=== PATIENT | female | born 1945 | race Hispanic/Latino ===

== ENCOUNTER 2018-09-24 19:19 | Emergency (ER) | payer OTHER, MEDICARE ==
[2018-09-24 20:57] LABS: Hematocrit 33.7 % (30.3-42.9); Hemoglobin 11.9 gm/dl (10.1-14.3); Mean Corpuscular HGB Conc 35 % (30-34); Mean Corpuscular Volume 93 fl (79-97); Platelet Count 278 K/mm3 (140-440); Red Blood Count 3.61 M/mm3 (3.65-5.03); Red Cell Distribution Width 12.9 % (13.2-15.2)
[2018-09-24 21:08] LABS: INR 1.05 (0.87-1.13)
[2018-09-24 21:18] LABS: BUN/Creatinine Ratio 8; Blood Urea Nitrogen 7 mg/dL (7-17); Calcium 9.3 mg/dL (8.4-10.2); Hemolysis Index 2
--- NOTE | 2018-09-24 21:28 | Emergency Department Report ---
ED General Adult HPI - General Chief complaint: Dyspnea/Respdistress Stated complaint: POSS APNEA Time Seen by Provider: 09/24/18 20:21 Source: patient, family, EMS, RN notes reviewed Mode of arrival: Stretcher Limitations: No Limitations - History of Present Illness Initial comments: This is a 73-year-old female who typically follows with the [facility]. She endorses a past medical history of hypothyroidism and osteoporosis. The patient was brought to the hospital by emergency medical services from a local [facility] facility. Patient sent to the emergency room, with complaints of apnea and convulsions. Upon EMS arrival to an outpatient urgent care facility, patient is found to be alert and oriented, in no acute distress, with a GCS of 15. Patient reports that she's been having periods of apnea and convulsions. EMS reports that over the past year to year and a half, she has episodes of shortness of breath, which are exertional, loss of consciousness, and possible convulsions. The patient reports that she had an extensive workup at [facility], including EEG, presumed echocardiogram, pulmonary function tests. She reports that she is passing out on a daily basis. She reports no chest pain, and no DVT, pulmonary embolus risk factors. Her reports that to his recollection, she does not have episodes of apnea during sleeping, and that he will occasionally have to perform a thump on her chest, to "revive her." The patient has not had an outpatient sleep study. Apparently, the patient gets episodes of shortness of breath, and "cannot catch her breath and she gets weak." She may have had an episode of loss of consciousness today. The patient has not had a formal outpatient sleep study. She believes her symptoms started after she started an inappropriate thyroid medication, which she thinks was a formulation of T3, T4. The patient reports that she's been off of his medication for over a year. -: Gradual, month(s) Severity scale (0 -10): 0 Consistency: intermittent Improves with: movement Associated Symptoms: loss of appetite, malaise, shortness of breath, syncope, we akness - Related Data Allergies Allergy/AdvReac Type Severity Reaction Status Date / Time No Known Allergies Allergy Unverified 09/24/18 22:56 ED Review of Systems ROS: Stated complaint: POSS APNEA Other details as noted in HPI Constitutional: malaise, other Eyes: denies: vision change ENT: denies: epistaxis Respiratory: shortness of breath Cardiovascular: syncope. denies: chest pain Gastrointestinal: denies: vomiting Genitourinary: denies: dysuria Musculoskeletal: denies: back pain Skin: denies: lesions Neurological: weakness. denies: headache, numbness, paresthesias, confusion, abnormal gait, vertigo Psychiatric: anxiety ED Past Medical Hx - Past Medical History Previous Medical History?: Yes Additional medical history: Osteoporosis, melanom, hypothyroidism - Surgical History Past Surgical History?: Yes Additional Surgical History: skin, right leg, left arm, section 1969 - Social History Smoking Status: Never Smoker Substance Use Type: None ED Physical Exam - General Limitations: No Limitations General appearance: alert, in no apparent distress - Head Head exam: Present: atraumatic, normocephalic - Eye Eye exam: Present: normal appearance, PERRL, EOMI, other (visual acuity intact to finger counting, color perception, reading at a close distance). Absent: nystagmus - ENT ENT exam: Present: normal exam, normal orophraynx, mucous membranes moist, normal external ear exam - Neck Neck exam: Present: normal inspection, full ROM. Absent: tenderness, meningismus - Respiratory Respiratory exam: Present: normal lung sounds bilaterally. Absent: respiratory distress - Cardiovascular Cardiovascular Exam: Present: normal rhythm, bradycardia, normal heart sounds. Absent: systolic murmur, diastolic murmur, rubs, gallop - GI/Abdominal GI/Abdominal exam: Present: soft. Absent: distended, tenderness, guarding, rebound, rigid, pulsatile mass - Extremities Exam Extremities exam: Present: normal inspection, full ROM, other (2+ pulses noted in the bilateral upper, lower extremities. Compartments soft. No long bony tenderness. The pelvis is stable.). Absent: pedal edema, joint swelling, calf tenderness - Back Exam Back exam: Present: normal inspection, full ROM. Absent: tenderness, CVA tenderness (R), paraspinal tenderness, vertebral tenderness - Neurological Exam Neurological exam: Present: alert, oriented X3, CN II-XII intact, other (Extraocular movements intact. Tongue midline. No facial droop. Facial sensation intact to light touch in the V1, V2, V3 distribution bilaterally. 5 and 5 strength in 4 extremities.. Sensation is intact to light touch in 4 extremities.). Absent: motor sensory deficit - Psychiatric Psychiatric exam: Present: anxious - Skin Skin exam: Present: warm, dry, intact, normal color. Absent: rash ED Course Vital Signs 09/24/18 09/24/18 09/24/18 20:20 20:24 20:38 Temperature 98.6 F 98.6 F Pulse Rate 59 L 59 L Respiratory 18 18 18 Rate Blood Pressure 120/44 Blood Pressure 120/44 [Left] O2 Sat by Pulse 99 99 98 Oximetry 09/24/18 09/24/18 09/24/18 20:48 21:00 21:16 Temperature Pulse Rate 53 L 55 L 53 L Respiratory 16 21 16 Rate Blood Pressure 108/48 117/47 Blood Pressure [Left] O2 Sat by Pulse 99 100 99 Oximetry 09/24/18 09/24/18 09/24/18 21:30 21:46 22:00 Temperature Pulse Rate 53 L 57 L 66 Respiratory 20 20 26 H Rate Blood Pressure 105/43 105/43 105/43 Blood Pressure [Left] O2 Sat by Pulse 99 99 93 Oximetry 09/24/18 09/24/18 09/24/18 22:16 22:30 22:46 Temperature Pulse Rate 56 L 55 L 55 L Respiratory 18 17 15 Rate Blood Pressure 101/47 113/47 113/47 Blood Pressure [Left] O2 Sat by Pulse 100 99 97 Oximetry - Reevaluation(s) Reevaluation #1: 09/24/18 21:28 Differential diagnosis, including but not limited to: Sleep apnea, idiopathic lung disease, structural cardiac disease, arrhythmia, electrolyte derangement, acute coronary syndrome, seizure, pseudoseizure, conversion disorder Assessment and plan: 73-year-old female with reported year-long history of shortness of breath, which is exertional, episodes of apnea, questionable seizure-like activity, who has reportedly had extensive inpatient workup at [facility]. The patient is clinically sober at this time, with a Skillman Coma Scale of 15, within an night score of 0. She is not tachycardic, she is not hypoxic, she endorses no pulmonary embolus or DVT risk factors, and she is low risk by well's criteria. The patient will require consultation with a neurologist, possibly sleep specialist, and possibly warehouse person. Her screening laboratory studies are unremarkable, her physical examination is unremarkable, and she is hemodynamically and neurologically stable currently. Contacted the [facility] and discussed with the coordinating physician, Dr. Calle to arrange for transfer to one of their facilities as we do not have the aforementioned subspecialty services available from patient or emergency room consultation. Reevaluation #2: 09/24/18 21:46 Patient is accepted to [facility] [place], Dr. Melo is the accepting physician. ED Medical Decision Making - Lab Data Result diagrams: 09/24/18 20:46 09/24/18 20:46 Vital Signs 09/24/18 09/24/18 20:20 20:24 Temperature 98.6 F 98.6 F Pulse Rate 59 L 59 L Respiratory 18 18 Rate Blood Pressure 120/44 Blood Pressure 120/44 [Left] O2 Sat by Pulse 99 99 Oximetry Lab Results 09/24/18 09/24/18 09/24/18 Range/Units 20:46 20:46 20:46 WBC 7.7 (4.5-11.0) K/mm3 RBC 3.61 L (3.65-5.03) M/mm3 Hgb 11.9 (10.1-14.3) gm/dl Hct 33.7 (30.3-42.9) % MCV 93 (79-97) fl MCH 33 H (28-32) pg MCHC 35 H (30-34) % RDW 12.9 L (13.2-15.2) % Plt Count 278 (140-440) K/mm3 PT 14.4 (12.2-14.9) Sec. INR 1.05 (0.87-1.13) Sodium 142 (137-145) mmol/L Potassium 3.9 (3.6-5.0) mmol/L Chloride 103.6 (98-107) mmol/L Carbon Dioxide 25 (22-30) mmol/L Anion Gap 17 mmol/L BUN 7 (7-17) mg/dL Creatinine 0.9 (0.7-1.2) mg/dL Estimated GFR > 60 ml/min BUN/Creatinine Ratio 8 % Glucose 101 H (65-100) mg/dL Calcium 9.3 (8.4-10.2) mg/dL Magnesium 2.30 (1.7-2.3) mg/dL Total Creatine Kinase 64 (30-135) units/L Troponin T < 0.010 (0.00-0.029) ng/mL TSH (0.270-4.200) mlU/mL Free T4 (0.76-1.46) ng/dL 09/24/18 09/24/18 Range/Units 20:46 20:46 WBC (4.5-11.0) K/mm3 RBC (3.65-5.03) M/mm3 Hgb (10.1-14.3) gm/dl Hct (30.3-42.9) % MCV (79-97) fl MCH (28-32) pg MCHC (30-34) % RDW (13.2-15.2) % Plt Count (140-440) K/mm3 PT (12.2-14.9) Sec. INR (0.87-1.13) Sodium (137-145) mmol/L Potassium (3.6-5.0) mmol/L Chloride (98-107) mmol/L Carbon Dioxide (22-30) mmol/L Anion Gap mmol/L BUN (7-17) mg/dL Creatinine (0.7-1.2) mg/dL Estimated GFR ml/min BUN/Creatinine Ratio % Glucose (65-100) mg/dL Calcium (8.4-10.2) mg/dL Magnesium (1.7-2.3) mg/dL Total Creatine Kinase (30-135) units/L Troponin T (0.00-0.029) ng/mL TSH 1.600 (0.270-4.200) mlU/mL Free T4 1.19 (0.76-1.46) ng/dL - EKG Data -: EKG Interpreted by [facility] EKG shows normal: sinus rhythm Rate: bradycardia - EKG Data When compared to previous EKG there are: previous EKG unavailable 09/24/18 21:36 Bradycardic rhythm, 56 bpm, normal axis, QTC 452 ms, biphasic T-wave in V2, V3, V4, low voltage, abnormal EKG, not having chest pain, not consistent with ST elevation myocardial infarction. Critical care attestation.: If time is entered above; I have spent that time in minutes in the direct care of this critically ill patient, excluding procedure time. ED Disposition Clinical Impression: History of dyspnea, History of syncope [id number] IP Is pt being admited?: No Does the pt Need Aspirin: No Condition: Good Referrals: PRIMARY CARE, [Primary Care Provider] - 3-5 Days
[2018-09-24 22:53] VITALS: BP 113/47
== END 2018-09-24 22:55 | disposition short-term general hospital (02) ==
LOC: ED 19:19
DX: R55 Syncope and collapse (principal); R06.00 Dyspnea, unspecified; E03.9 Hypothyroidism, unspecified
CPT/HCPCS: 36415; 80048; 82550; 83735; 84439; 84443; 84484; 85027; 85610; 93005